=== PATIENT | male | born 1975 | race Caucasian/White ===

== ENCOUNTER 2017-03-25 20:36 | Inpatient (IN) | payer BC ==
[~2017-03-25] VITALS: Ht 185.4 cm; Wt 96.5 kg
[~2017-03-25 20:36] MED LIST: LISI10TA PO; rolaids PO
[2017-03-25 22:34] VITALS: BP 148/89; PULSE 80; TEMP 37.4; O2SAT 93; Ht 185.4 cm; Wt 96.5 kg
[2017-03-25 23:24] VITALS: BP 149/91; PULSE 73; TEMP 36.6; O2SAT 96
[2017-03-25] MEDS ORDERED: ONDANSETRON INJ 2 MG/ML 2 ML VIAL IV PRN (23:30)
[2017-03-25] MEDS ORDERED: ACETAMINOPHEN 325 MG TAB PO PRN (23:30)
[2017-03-25] MEDS ORDERED: POLYETHYLENE (MIRALAX) 17 GM PACK PO PRN (23:30)
--- NOTE | 2017-03-25 23:42 | History and Physical ---
History & Physical Date & Time of Service: Mar 25, 2017 at 23:41 Chief Complaint: Acute Ataxia Primary Care Physician: Omer Turner M.D. History of Present Illness Source: patient 41-year-old male with a past medical history of hypertension, peripheral neuropathy in bilateral feet presented to the ER as a direct admit from [facility] with complaints of unsteadiness. Per patient, he took his regular blood pressure medication this morning and noticed that he felt "off balance/unsteady" while walking. He stated that he felt a little dizzy but denied any near syncope or syncope. Denies any chest pain, shortness of breath, palpitations. Denies motor weakness , new onset numbness or tingling, blurriness of vision or slurring of speech. He stated that he has had issues with neuropathy in his bilateral feet for several years and was on Neurontin which he stopped as he did not tolerate it well. Denies any nausea, vomiting, abdominal pain, diarrhea. He has a history of hypertension pressure and is on lisinopril 10 mg daily for several years. He smokes about 8-10 cigarettes per day and drinks about 6-8 beers per day. Past Medical/Surgical History Medical Problems: (1) Allergic reaction Status: Resolved (2) Chest pain Status: Resolved (3) Cyst Status: Resolved Family History FH: HTN (hypertension) FH: diabetes mellitus FH: heart disease Social History Smoking Status: Current Every Day Smoker Marital Status: Housing status: lives with family Occupational Status: employed Multi-Drug Resistant Organisms History of MDRO: No Allergies Coded Allergies: Morphine (Verified Allergy, Unknown, Cramps in chest, 03/25/17) Home Medications Scheduled Lisinopril (Prinivil), 10 MG PO QD@08 Scheduled PRN [rolaids], 2 TABS PO for Heartburn Review of Systems Constitutional: No fever, No chills, No sweats Eyes: No worsening of vision, No diplopia ENT: No hearing loss, No nasal symptoms Respiratory: No cough, No shortness of breath, No dyspnea on exertion Cardiovascular: No chest pain, No palpitations Abdomen: No pain, No nausea, No vomiting, No diarrhea Musculoskeletal: No joint pain, No swelling Genitourinary - Male: No hematuria, No dysuria, No urinary hesitancy Neurologic: + balance problems, + problem reported (numbness bilateral feet), No memory loss Psychiatric: No depression symptoms Endocrine: No fatigue, No excessive thirst Hematologic / Lymphatic: No abnormal bleeding/bruising Integumentary: No rash Allergic / Immunologic: No environmental allergies Physical Exam Vital Signs Date Time Temp Pulse Resp B/P (MAP) Pulse Ox O2 Delivery O2 Flow Rate FiO2 03/25/17 22:34 37.4 80 18 148/89 93 Room Air General Appearance: WD/WN, no apparent distress Head: normocephalic Eyes: normal inspection ENT: hearing grossly normal Neck: supple Respiratory/Chest: chest non-tender, lungs clear, normal breath sounds, no respiratory distress, no accessory muscle use Cardiovascular: regular rate, rhythm Abdomen/GI: normal bowel sounds, non tender, soft Back: normal inspection Extremities/Musculoskelatal: no pedal edema Neurologic/Psych: seniour insight manager II-XII nml as tested, alert, normal mood/affect, oriented x 3, + sensory deficit (bilateral feet) Skin: normal color, warm/dry Impression Assessment and Plan 41-year-old male with a past medical history of hypertension, peripheral neuropathy in bilateral feet presented to the ER as a direct admit from [facility] with complaints of unsteadiness. His lab work at the outside hospital was unremarkable. He also had a CTA head which was negative. CT head was negative. 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 He does have a significant history of alcohol abuse and drinks about 6-8 beers per [address]. 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 I discussed the case with the resident and agree with the findings and plan as documented in the note. Any exceptions or clarifications are listed here: 41 y/o M Hx HTN and excessive alcohol intake. Presents with an unstable gait which he woke up with AM. Initially at [facility] and transferred as they lack a neurology service. OE AAO x 3 S1,2 R CTAB NT, ND, BS+ No CCE Neuro: No deficits are present aside from a + Rhomberg test P: MRI with and without contrast - consult neuro if symptoms do not resolve by AM Discussed excess alcohol intake with pt who drinks 6-8 beers HS - He does not have a history of DTs or symptoms of withdrawal at present - it is unlikely that this is related to his acute gait impairment Cont EDMUND for HTN Documented By: Williams Kirkland Level of Care Telemetry Advanced Directives Existing Living Will: No Existing Power of Slot Machine Department Floorperson: No Resuscitation Status FULL RESUSCITATION VTE Prophylaxis VTE Risk Assessment Done? Y/N: Yes Risk Level: Moderate Given or contraindicated: SCD's Resident Tracking Resident Involvement: Resident Care Provided Care Provided: Adult Hospital Medicine
[2017-03-26] VITALS (9 sets, daily range): BP systolic 132–150; BP diastolic 80–97; PULSE 75–83; TEMP 36.7–36.9; O2SAT 93–97
[2017-03-26 07:47] LABS: BUN/CREATININE RATIO 9.8 (10-20); CALCIUM 8.3 mg/dl (8.5-10.1)
[2017-03-26 07:50] LABS: ALB/GLOB RATIO 1.1 (0.9-2)
[2017-03-26] MEDS ORDERED: LISINOPRIL 10 MG TAB PO SCH (08:00)
[2017-03-26 08:02] LABS: BASO % 0.4 %; BASO ABS # 0.04 K/uL (0-0.2); COMPLETE YES; EOS % 4.6 %; HEMATOCRIT 43.5 % (42-52); IG% 0.3 %; LYMPH % 25.2 %; LYMPH ABS # 2.73 K/uL (1.2-3.4); MEAN CELL VOLUME 94.6 fL (80-100); MEAN CORPUSCULAR HEMOGLOBIN 31.5 pg (25-34); MEAN CORPUSCULAR HGB CONC 33.3 g/dl (32-36); MEAN PLATELET VOLUME 10.6 fL (7.4-10.4); MONO % 7.7 %; NEUT % 61.8 %; PLATELET COUNT 223 K/uL (130-400); WHITE BLOOD COUNT 10.84 K/uL (4.8-10.8)
--- NOTE | 2017-03-26 10:01 | Medical Student: [facility] ---
Med Student History & Physical Date & Time of Service: Mar 26, 2017 at 09:51 Chief Complaint: Acute Ataxia Primary Care Physician: Omer Turner M.D. History of Present Illness Source: patient Mr. Slaughter is a 41yo male who presented to the ED at [facility] with complaints of "feeling clumsy," "dizzy," and "staggering while walking." Patient awoke on Sunday (03/25) around 09:30 with the described symptoms. Mr. Slaughter attributed the symptoms to potentially elevated blood pressure; he took his prescribed lisinopril 10mg. Yet, the symptoms persisted and his took him to the ED at around 13:30. Patient reports that he did nothing out of the ordinary on Sunday (03/24). He reports drinking about 8 beers every night for the past 2 years. At [facility], patient reports that the ED doctor noted impaired tandem walking and a positive Romberg test. Patient denies nausea, vomiting, fever, chills, shortness of breath, or chest pain. The patient was seen in the outpatient setting by Dr. Kramer in 11/2015 for an EMG and nerve conduction studies of the arms, which showed mixed sensorimotor polyneuropathy with no signs of radiculopathy or myopathy. MRI of cervical spine showed a bulging disc around C4/C5 with no cord compromise or impingement. In 02/2016 the patient was seen by Dr. Pritchett for b/l paresthesias in the hands; Dr. Pritchett also noted some b/l hand weakness. Testing for causes of his peripheral neuropathy (diabetes, B12 deficiency, Lyme disease, rheumatological disorders) were unremarkable: HgbA1c 5.4; B12 514, Lyme Ab titers, SHELDON, SSA, and SSB were all negative. 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[employer]) Allergies Coded Allergies: Morphine (Verified Allergy, Unknown, Cramps in chest, 03/25/17) Medications Folate-Vitamin X20-Gflkwzpvt F (Intrinsi B12/Folate), 400 MCG PO DAILY Lisinopril (Prinivil), 10 MG PO QD@08 Thiamine Hcl (Vitamin B-1), 100 MG PO DAILY [rolaids], 2 TABS PO for Heartburn Review of Systems Constitutional: No fever, No chills, No sweats, No weight loss, No weakness Eyes: No worsening of vision, No eye pain ENT: No hearing loss, No nasal symptoms, No sore throat Respiratory: No cough, No sputum, No wheezing, No shortness of breath Cardiovascular: No chest pain, No orthopnea, No edema Abdomen: No pain, No nausea, No vomiting, No diarrhea, No constipation Musculoskeletal: No joint pain, No muscle pain, No swelling, No calf pain Genitourinary - Male: No dysuria, No urinary frequency, No urinary urgency Neurologic: + numbness/tingling (b/l feet), + balance problems, No memory loss Integumentary: No rash Allergic / Immunologic: No environmental allergies Physical Exam Vital Signs (24 Hours) Date Time Temp Pulse Resp B/P (MAP) Pulse Ox O2 Delivery O2 Flow Rate FiO2 03/26/17 08:06 36.8 80 16 147/97 (114) 95 Room Air 03/26/17 04:00 93 Room Air 03/26/17 03:54 36.9 82 20 133/80 (97) 96 Room Air 83 143/97 (112) 81 132/91 (105) 03/26/17 00:00 93 Room Air 03/25/17 23:24 36.6 73 20 149/91 (110) 96 Room Air 03/25/17 22:34 37.4 80 18 148/89 93 Room Air General Appearance: WD/WN, no apparent distress Cardiovascular: regular rate, rhythm, no murmur Patient is right-handed. Mental status: Patient is alert and oriented to person, date, and place. Speech , mood, and affect are normal. Cranial nerves: II: PERRL; no visual field deficits present; gross visual acuity intact. III, IV, : EOMI; no eye deviation at primary gaze. V: light touch intact in V1, 2, & 3 distributions. VII: facial muscles intact and symmetric with wrinkling forehead, tight eye closure, puffing cheeks out, and smiling. VIII: hearing grossly intact to finger rub. IX, X: palate elevates symmetrically. XI: head turning and shoulder shrug intact. XII: tongue is midline with normal movement; no atrophy or fasciculations. Motor: Normal tone (no rigidity or spasticity); no atrophy or fasciculations. Strength assessed as 5/5 for upper extremities b/l (shoulder abduction, elbow flexion/extension, wrist flexion/extension, abduction of fingers) and lower extremities b/l (hip flexion, knee flexion/extension, dorsiflexion/plantar flexion) Deep tendon reflexes: 1+ biceps, brachioradialis, and triceps b/l; 1+ patellar b /l; absent Achilles b/l. Sensory: vibration and temperature intact b/l in upper extremities; decreased light touch sensation in b/l distal upper extremities; decreased light touch, vibration, and temperature sensation in b/l stocking distribution of lower extremities. Coordination: mild finger to nose dysmetria (end action tremor); normal heel to keller without dysmetria. Gait: difficulty with tandem walking positive Romberg test toes are downgoing with plantar stimulation b/l Diagnostics Laboratory Results Results Past 24 Hours Test 03/26/17 06:59 03/26/17 07:25 Range/Units White Blood Count 10.84 4.8-10.8 K/uL Red Blood Count 4.60 4.7-6.1 M/uL Hemoglobin 14.5 14.0-18.0 g/dL Hematocrit 43.5 42-52 % Mean Corpuscular Volume 94.6 80-100 fL Mean Corpuscular Hemoglobin 31.5 25-34 pg Mean Corpuscular Hemoglobin Concent 33.3 32-36 g/dl Platelet Count 223 130-400 K/uL Mean Platelet Volume 10.6 7.4-10.4 fL Neutrophils (%) (Auto) 61.8 % Lymphocytes (%) (Auto) 25.2 % Monocytes (%) (Auto) 7.7 % Eosinophils (%) (Auto) 4.6 % Basophils (%) (Auto) 0.4 % Neutrophils # (Auto) 6.70 1.4-6.5 K/uL Lymphocytes # (Auto) 2.73 1.2-3.4 K/uL Monocytes # (Auto) 0.84 0.11-0.59 K/uL Eosinophils # (Auto) 0.50 0-0.5 K/uL Basophils # (Auto) 0.04 0-0.2 K/uL RDW Standard Deviation 44.5 36.4-46.3 fL RDW Coefficient of Variation 13.0 11.5-14.5 % Immature Granulocyte % (Auto) 0.3 % Immature Granulocyte # (Auto) 0.03 0.00-0.02 K/uL Sodium Level 139 136-145 mmol/L Potassium Level 4.0 3.5-5.1 mmol/L Chloride Level 107 98-107 mmol/L Carbon Dioxide Level 27 21-32 mmol/L Anion Gap 5.0 3-11 mmol/L Blood Urea Nitrogen 10 7-18 mg/dl Creatinine 1.00 0.60-1.40 mg/dl Est Creatinine Clear Calc Drug Dose 120.2 ml/min Estimated GFR () 108.6 Estimated GFR (Non- 93.7 BUN/Creatinine Ratio 9.8 10-20 Random Glucose 92 70-99 mg/dl Calcium Level 8.3 8.5-10.1 mg/dl Total Bilirubin 0.3 0.2-1 mg/dl Aspartate Amino Transf (AST/SGOT) 26 15-37 U/L Alanine Aminotransferase (ALT/SGPT) 54 12-78 U/L Alkaline Phosphatase 75 45-117 U/L Total Protein 6.6 6.4-8.2 gm/dl Albumin 3.4 3.4-5.0 gm/dl Globulin 3.2 2.5-4.0 gm/dl Albumin/Globulin Ratio 1.1 0.9-2 Vitamin B12 Level 431 211-911 pg/mL Folate 21.43 >5.38 ng/mL Diagnostic Radiology BRAIN COMBO CLINICAL HISTORY: 41 years-old Male presenting with acute ataxia. TECHNIQUE: Multisequence, multiplanar MR imaging of the brain was performed after the administration of intravenous contrast. IV contrast: None. COMPARISON: Correlation made with CT from 10/25/2014. FINDINGS: Normal midline sagittal structures. Salcedo-white matter differentiation preserved. No restricted diffusion to suggest acute ischemia. No midline shift or mass effect. Ventricles and sulci within normal limits. No hemorrhage or extra-axial fluid collection. Bone marrow signal intensity within the calvarium normal. Paranasal sinuses and mastoid air cells grossly clear. Orbits normal. Upper cervical spine normal. IMPRESSION: No acute intracranial abnormality. Electronically signed by: Bismark Camejo 03/26/2017 1:47 PM Impression Assessment and Plan Mr. Slaughter is a 41yo male with a history of hypertension and b/l peripheral neuropathy in hands and feet who presented with an unsteady gait. Unsteady gait: --DDX: peripheral neuropathy, alcohol withdrawal, cerebellar damage, B12 or B6 deficiency. --the patient's unsteady gait can most likely be attributed to his b/l peripheral neuropathy in his feet (i.e. sensory ataxia); although cerebellar damage cannot be ruled out. The patient did not exhibit signs of alcohol withdrawal today, but I am unsure if they were present upon initial presentation to the ED. B12 levels were within normal limits; B6 levels will be tested. Peripheral neuropathy: --etiology of patient's peripheral neuropathy is unknown. Testing for the following causes of peripheral neuropathy (diabetes, B12 deficiency, Lyme disease, rheumatological disorders) were unremarkable: HgbA1c 5.4; B12 514, Lyme Ab titers, SHELDON, SSA, and SSB were all negative. --will test for heavy metals with a 24hr urine --the patient's chronic heavy alcohol use may be a contributing factor or the cause HTN: --poorly controlled; consider increasing lisinopril 10mg or adding an additional anti-hypertensive medication. Advanced Directives Existing Living Will: No Existing Power of Safe Deposit Box Rental Clerk: No
--- NOTE | 2017-03-26 10:24 | Neurology Consultation ---
Neurology Consultation Date of Consultation: Mar 26, 2017. Attending Physician: Nils Ambriz D.O. Primary Care Physician: Omer Turner M.D. Reason for Consultation: Patient is a 41-year-old, who was asked to see the request of Dr. Thompson, for neurologic consultation regarding abnormal gait and neuropathy History of Present Illness Source: patient, family, caregiver, clinic records, hospital records Patient's is present at bedside. The patient has had problems with numbness in his feet with intermittent tingling for 2-3 years now. It was a rather insidious onset and gradual progression. In November 2015, EMG and nerve conduction studies of the arms showed a sensory greater than motor polyneuropathy of the significant nature. There was no superimposed carpal tunnel syndrome or radiculopathy. He did have some neck pain at the time. An MRI of the cervical spine in 2014 showed C4-5 and C3-[address] Patient saw [address] Pritchett in February 2016. On exam she felt some slight hand weakness bilaterally but his gait was unremarkable except for a lack of tandem walking. At that time, chem profile was unremarkable except for a mildly elevated ALT and AST. CBC was normal and hemoglobin A1c was 5.4. Electrophoresis was unremarkable, B-12 was 514, Lyme antibody titers were negative, and SHELDON, SSA, and SSB were unremarkable. Serum ceruloplasmin and copper were normal. He was lost to follow-up as an outpatient after that. Patient tells me that he's had continued bilateral numbness in his feet and intermittent tingling of his feet which comes and goes. He does not have significant pain and he has no weakness in his legs. There is no urinary incontinence. He does "stumble" at times and have some decreased coordination. This isn't been going on for years so. He does not actually fall. He denies any confusion, speech problems or cognitive issues. He has no vision problems. His a chronic history of hypertension but no history of diabetes, heart disease , or stroke. More recently, he has had cramping in his hands lasting 5-10 minutes particularly at the end of a long, hard day at work. She was in his usual state of health this past weekend when on March 25 he awoke at 0930 hours within unusual fatigue and dizziness. It was more of a woozy/ movement sensation although the was not true vertigo. It was worse to walk but he had no other acute symptoms. There is no focal weakness or numbness. No abnormal involuntary movements. Around 1300 hrs. he went to [facility] emergency room. In the being transferred to our institution late in the day. At 2-34 hours, blood pressure was 37.4, pulse 80, respiratory rate 18, blood pressure 140/89, and O2 saturation 93%. His gait was questionably unbalanced but his exam was otherwise nonfocal. CBC was unremarkable except for some mild increase in white count. Chemistry profile including liver profile was normal. B-12 was 431, folate 21, and RPR is pending. He is much improved today, and only has a residual of the feelings he had yesterday. He has no new issues overnight. Blood pressure remains somewhat elevated. 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 Gait disturbance Chronic alcohol use. Hypertension History of right shoulder area skin birthmark removal age 10. Family History Mother is alive at age 62 with a history of heart disease and has a history of blood clots. Father in his 50s from COPD. There is no family history of polyneuropathy. Social History Patient smokes about a half-pack of cigarettes per day and has been doing this since age 13 or 14. Patient currently drinks approximately 8 beers per evening every evening. This is been going on for about 2 years. Prior to that he would drink up to a sixpack in the evening ever since age 21. 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 Smokeless Tobacco Use: No Alcohol Use: heavy Drug Use: none Marital Status: Housing Status: lives with significant other Occupation Status: employed Allergies Coded Allergies: Morphine (Verified Allergy, Unknown, Cramps in chest, 03/25/17) Current Inpatient Medications Current Inpatient Medications Medications (Trade) Dose Ordered Sig/Leah Route Start Time Stop Time Status Last Admin Dose Admin Acetaminophen (Tylenol Tab) 650 mg Q4H PRN PO 03/25/17 23:30 04/24/17 23:29 Ondansetron HCl (Zofran Inj) 4 mg Q6H PRN IV 03/25/17 23:30 04/24/17 23:29 Polyethylene (Miralax Powder Packet) 17 gm DAILY PRN PO 03/25/17 23:30 04/24/17 23:29 Lisinopril (Zestril Tab) 10 mg QD@08 PO 03/26/17 08:00 04/25/17 07:59 03/26/17 08:08 10 MG Review of Systems Constitutional: + fatigue, No fever, No weakness Eyes: No worsening of vision, No diplopia ENT: No hearing loss, No tinnitus Respiratory: No cough, No shortness of breath Cardiovascular: No chest pain, No palpitations Abdomen: No pain, No nausea Musculoskeletal: No joint pain, No muscle pain Genitourinary - Male: No dysuria, No urinary incontinence Neurologic: + numbness/tingling, + balance problems, No memory loss, No weakness Psychiatric: No depression symptoms, No anxiety Endocrine: + fatigue Hematologic / Lymphatic: No abnormal bleeding/bruising Integumentary: No rash Allergic / Immunologic: No hives Physical Exam Vital Signs (Past 24 Hrs): Date Time Temp Pulse Resp B/P (MAP) Pulse Ox O2 Delivery O2 Flow Rate FiO2 03/26/17 08:06 36.8 80 16 147/97 (114) 95 Room Air 03/26/17 04:00 93 Room Air 03/26/17 03:54 36.9 82 20 133/80 (97) 96 Room Air 83 143/97 (112) 81 132/91 (105) 03/26/17 00:00 93 Room Air 03/25/17 23:24 36.6 73 20 149/91 (110) 96 Room Air 03/25/17 22:34 37.4 80 18 148/89 93 Room Air Patient is right-handed. The patient is awake and alert. Speech is normal without aphasia or dysarthria. Mentation and thought processes are intact with orientation and normal fund of knowledge. Mood and affect are normal and appropriate. Appearance and grooming are normal. The discs are sharp with positive venous pulsations. There are no exudates, hemorrhages, or blood vessel changes seen. Pupils are 4mm bilaterally and reactive to light. Extraocular eye muscles are intact without nystagmus. Visual acuity and visual patel seem normal grossly to confrontation. There are no deficits to sensation of the face bilaterally. Corneal reflexes are positive bilaterally. Facial strength and symmetry is normal bilaterally. Hearing seems intact grossly to voice and finger rub. Palate moves well without asymmetry. There is normal sternocleidomastoid and trapezius strength bilaterally. Tongue is midline with good strength bilaterally. Neck is with full range of motion without discomfort. There are no cervical bruits. There are no cranial or ocular bruits. Heart is without murmur. Cervical, thoracic, and lumbar spine are nontender to palpation. Gait is slightly wide-based with positive arm swing and fairly stable bilaterally. Turns are reasonable. Stance with feet together and eyes open is good. With eyes closed she sways considerably. Tandem walking is difficult for him. With outstretched arms there is no drift. There are no resting tremors. The patient has very mild endpoint action tremor bilaterally. She does not have a true postural tremor. There is no ataxia with [id number] testing. There is good facility in the hands. There are no abnormal involuntary movements noted. There is no ataxia with [id number] testing either. 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 Motor strength is 5/5 diffusely in the legs bilaterally including hip flexors, quadriceps, hamstring, gastrocnemius, tibialis anterior, tibialis posterior, and peroneii muscles bilaterally. Toe extensors are normal and there is good bulk in the extensor digitorum brevis muscle bilaterally. The limbs have good tone without rigidity or spasticity, and there is no atrophy noted. Muscle bulk is normal, there is no tenderness, no myotonia noted to percussion, and no fasciculations seen. Sensory examination reveals decreased sensation to pin in a stocking distribution to the mid lower legs bilaterally. Light touch is decreased in all 4 limbs distally. He has marked vibratory sense loss and mild to moderate position sense loss as well in the feet bilaterally. Reflexes are 1/4 in the biceps, triceps, brachioradialis, and quadriceps tendons bilaterally. Achilles tendon reflexes are absent bilaterally. Toes are downgoing with plantar stimulation bilaterally. Peripheral pulses are present and of normal quality distally in all four limbs. There is no peripheral edema noted. Laboratory Results Past 24 Hours: 03/26/17 06:59 Red Blood Count 4.60, Mean Corpuscular Volume 94.6, Mean Corpuscular Hemoglobin 31.5, Mean Corpuscular Hemoglobin Concent 33.3, Mean Platelet Volume 10.6, Neutrophils (%) (Auto) 61.8, Lymphocytes (%) (Auto) 25.2, Monocytes (%) (Auto) 7.7, Eosinophils (%) (Auto) 4.6, Basophils (%) (Auto) 0.4, Neutrophils # (Auto) 6.70, Lymphocytes # (Auto) 2.73, Monocytes # (Auto) 0.84, Eosinophils # (Auto) 0.50, Basophils # (Auto) 0.04 03/26/17 06:59 Test 03/26/17 06:59 03/26/17 07:25 White Blood Count 10.84 K/uL (4.8-10.8) Red Blood Count 4.60 M/uL (4.7-6.1) Hemoglobin 14.5 g/dL (14.0-18.0) Hematocrit 43.5 % (42-52) Mean Corpuscular Volume 94.6 fL (80-100) Mean Corpuscular Hemoglobin 31.5 pg (25-34) Mean Corpuscular Hemoglobin Concent 33.3 g/dl (32-36) Platelet Count 223 K/uL (130-400) Mean Platelet Volume 10.6 fL (7.4-10.4) Neutrophils (%) (Auto) 61.8 % Lymphocytes (%) (Auto) 25.2 % Monocytes (%) (Auto) 7.7 % Eosinophils (%) (Auto) 4.6 % Basophils (%) (Auto) 0.4 % Neutrophils # (Auto) 6.70 K/uL (1.4-6.5) Lymphocytes # (Auto) 2.73 K/uL (1.2-3.4) Monocytes # (Auto) 0.84 K/uL (0.11-0.59) Eosinophils # (Auto) 0.50 K/uL (0-0.5) Basophils # (Auto) 0.04 K/uL (0-0.2) RDW Standard Deviation 44.5 fL (36.4-46.3) RDW Coefficient of Variation 13.0 % (11.5-14.5) Immature Granulocyte % (Auto) 0.3 % Immature Granulocyte # (Auto) 0.03 K/uL (0.00-0.02) Anion Gap 5.0 mmol/L (3-11) Est Creatinine Clear Calc Drug Dose 120.2 ml/min Estimated GFR () 108.6 Estimated GFR (Non- 93.7 BUN/Creatinine Ratio 9.8 (10-20) Calcium Level 8.3 mg/dl (8.5-10.1) Total Bilirubin 0.3 mg/dl (0.2-1) Aspartate Amino Transf (AST/SGOT) 26 U/L (15-37) Alanine Aminotransferase (ALT/SGPT) 54 U/L (12-78) Alkaline Phosphatase 75 U/L (45-117) Total Protein 6.6 gm/dl (6.4-8.2) Albumin 3.4 gm/dl (3.4-5.0) Globulin 3.2 gm/dl (2.5-4.0) Albumin/Globulin Ratio 1.1 (0.9-2) Vitamin B12 Level 431 pg/mL (211-911) Folate 21.43 ng/mL (>5.38) Impression 1. Generalized polyneuropathy of uncertain etiology. This is been chronic and involve sensory greater than motor fibers of mixed pathology and fiber involvement. There is evidence of both large and small caliber sensory fiber involvement. This type of neuropathy explains his symptomatology and he likely has a sensory ataxia from the neuropathy He has had fairly extensive evaluation in the past without specific etiology identified. I suspect chronic peripheral neuropathy from direct alcohol effect on the nerves. This can be subacute or chronic. We will check some other labs as listed below however. Toxic neuropathy cannot entirely be excluded either. 2. Gait disturbance. I believe this is predominantly a sensory ataxia from polyneuropathy. I cannot exclude a component from a cerebellar issue (from chronic alcohol usage ) but he doesn't have much in the way of ataxia on exam. 3. Very mild action tremor There is no family history of tremor and again, there is no specific etiology. This may be a chronic alcohol effect as well particularly when he is not drinking. 4. Chronic alcohol usage There are no signs of alcohol withdrawal on exam today. 5. Hypertension. He is not currently adequately controlled. 6. History of disc protrusion and cervical spine pain: 2015. This was accompanied by some bilateral hand weakness but currently he has no head weakness and no neck pain. There are no signs of myelopathy on exam either (however, a significant polyneuropathy will mask upper motor neuron signs) . Plan 1. MRI of the brain with and without contrast. Rule out intracranial process including stroke and degenerative conditions 2. Laboratory studies to include B1, B-6, Lyme antibody titer, sedimentation rate, and serum lead level. 3. 24 urine for heavy metals. 4. I see no need for additional neurologic testing or treatment at this time. I may consider MRI of the cervical spine in future. 5. Control hypertension, type or mean arterial pressure of about 100 6. We had a discussion at length regarding stopping alcohol usage. Just simply cutting back on alcohol will not help his nerves if the neuropathy is due to a direct alcohol effect. It will have to be stopped and will help to wait at least 6 months to see if there is an improvement (assuming no vitamin deficiencies as well) . 7. Discontinue cigarette smoking. Patient's father at early age of COPD from smoking. I spoke with Dr. Ambriz regarding this case including differential diagnosis and treatment options.
--- NOTE | 2017-03-26 13:49 | DIAGNOSTIC IMAGING REPORT ---
BRAIN COMBO CLINICAL HISTORY: 41 years-old Male presenting with acute ataxia. TECHNIQUE: Multisequence, multiplanar MR imaging of the brain was performed after the administration of intravenous contrast. IV contrast: None. COMPARISON: Correlation made with CT from 10/25/2014. FINDINGS: Normal midline sagittal structures. Salcedo-white matter differentiation preserved. No restricted diffusion to suggest acute ischemia. No midline shift or mass effect. Ventricles and sulci within normal limits. No hemorrhage or extra-axial fluid collection. Bone marrow signal intensity within the calvarium normal. Paranasal sinuses and mastoid air cells grossly clear. Orbits normal. Upper cervical spine normal. IMPRESSION: No acute intracranial abnormality. Electronically signed by: Bismark Camejo 03/26/2017 1:47 PM Dictated Date/Time: 03/26/2017 1:42 PM
--- NOTE | 2017-03-26 15:37 | Discharge Instructions ---
Discharge Instructions Date of Service Mar 26, 2017. Admission Reason for Admission: Acute Ataxia Discharge Discharge Diagnosis / Problem: Ataxia Discharge Goals Goal(s): Learn about illness, Diagnostic testing Activity Recommendations Activity Limitations: per Instructions/Follow-up section . Instructions / Follow-Up Instructions / Follow-Up We did an MRI of your brain which did not show any acute or chronic brain damage. Please cut back on your alcohol usage as this is the likely reason for the damage to your nerves. If this is the cause of your neuropathy then it will take at least 6 months for your nerve function to improve. Please try your best to quit smoking also as this will lead to detrimental [facility] health outcomes. Please follow up with your PCP as well as Dr. Kramer in his office. He may want to do additional testing at that time. Dr. Schmitt office can be reached at [phone]. Please phone his office to make an appointment. We will be sending you home with a prescription for folate and thiamine. Please take these as prescribed. If you have any limb weakness, facial droop, speech difficulties or confusion then please come back to the emergency department. Current Hospital Diet Patient's current hospital diet: Regular Diet Discharge Diet Recommended Diet: Regular Diet Pending Studies Studies pending at discharge: no Medical Emergencies . Who to Call and When: Medical Emergencies: If at any time you feel your situation is an emergency, please call 911 immediately. . Non-Emergent Contact Non-Emergency issues call your: Primary Care Provider, Neurologist . . "Provider Documentation" section prepared by Hadley Pearson. . VTE Core Measure Inpt VTE Proph given/why not?: SCD's
[2017-03-26] MEDS ORDERED: THIA50TA3 PO (15:40)
[2017-03-26] MEDS ORDERED: FOLATAB PO (15:40)
--- NOTE | 2017-03-26 16:44 | Discharge Summary ---
Discharge Summary Date of Service Mar 26, 2017. (Hadley Pearson MD) Discharge Summary Admission Date: Mar 25, 2017 at 22:13 Discharge Date: Mar 26, 2017 Discharge Disposition: Home Principal Diagnosis: Ataxia Consultations: Neurology (Hadley Pearson MD) Medication Reconciliation New Medications: Folate-Vitamin [id number] F (Intrinsi B12/Folate) 1 Tab Tab 400 MCG PO DAILY for 60 Days, #60 TABS Thiamine Hcl (Vitamin B-1) 50 Mg Tab 50 MG PO DAILY for 60 Days, #60 TAB 5 Refills Continued Medications: Lisinopril (Prinivil) 10 Mg Tab 10 MG PO QD@08, #15 TAB 4 Refills [rolaids] () 2 TABS PO PRN for Heartburn Discharge Exam Patient feeling much better today. Almost back to baseline. He says he has been walking around the [place] and feels that his gait has improved tremendously Review of Systems: Constitutional: No fever, No chills Eyes: No worsening of vision, No diplopia ENT: No hearing loss, No tinnitus Respiratory: No cough, No shortness of breath Abdomen: No pain, No nausea, No vomiting Musculoskeletal: No joint pain, No muscle pain Neurologic: + balance problems, No paralysis, No weakness, No numbness/ tingling, No vertigo Physical Exam: General Appearance: WD/WN, no apparent distress ENT: hearing grossly normal, pharynx normal Neck: supple, no JVD, no carotid bruits Respiratory/Chest: lungs clear, no respiratory distress, no accessory muscle use Cardiovascular: regular rate, rhythm, no JVD, no murmur, normal peripheral pulses Abdomen / GI: normal bowel sounds, non tender, soft Extremities: normal capillary refill, no pedal edema, + pertinent finding ( chronic pressure wounds at base of big toe bilaterally) 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 with complaints of unsteadiness. He had a CT scan done at [place] which returned as unremarkable. Per patient, he took his regular blood pressure medication and noticed that he felt "off balance/unsteady" while walking. He stated that he felt a little dizzy but denied any near syncope or syncope. He stated that he has had issues with neuropathy in his bilateral feet for several years and was on Neurontin which he stopped as he did not tolerate it well. He has a history of hypertension pressure and is on lisinopril 10 mg daily for several years. He smokes about 8-10 cigarettes per day and drinks about 6-8 beers per day. He has been seen by neurology as an outpatient and has had an extensive workup which has all been unremarkable. In the hospital neurology was consulted and an MRI was ordered which came back as normal. It was suggested that the patient would benefit from B1, B6 testing, repeat HbA1c, Lyme ab, serum lead. It is highly likely that the majority of this patients unsteadiness is due to his drinking and we discussed alcohol cessation thoroughly to prevent further nerve damage. He was also encouraged to stop smoking. It was decided by the medical team on 03/26/2017 that the patient could be discharged and the rest of his neuro workup could be done as an outpatient. Total Time Spent: Less than 30 minutes This includes examination of the patient, discharge planning, medication reconciliation, and communication with other providers. (Hadley Pearson MD) Resident Physician Supervision Note: I interviewed and examined the patient. Discussed with Dr. Pearson and agree with findings and plan as documented in the note. Any exceptions or clarifications are listed here: None Documented By: Nils Ambriz feeling back to baseline. wants to go home. drinks 6-8 16oz beers a day. doesn't believe he has addictions, just a habit. ntoes she's been telling him he needs to quit drinking so heavy for a while. no withdrawal s/s. all other ROS otherwise negative except for as above vitals noted nad breathign unlabored no pallor or icterus. neuro exam as above neuropathy - appearing to be a sensory and proprioceptive peripheral neuropathy - with his heavy EtOH abuse hx and with his lack of other possible causes - appears almost certain to be an EtOH mediated neuropathy -> recommended cessation, discussed risks of permanence of current condition, discussed with EtOH neuropathy i harbor fears that he could also go on to develop wernicke- korsakoff. shows no s/s that at this time but discussed risk. start thiamine/ folate. safe for discharge home. EtOH cessation, outpt PCP and neuro f/u Total Time Spent: Less than 30 minutes (Nils Ambriz D.O.) Discharge Instructions Please refer to the electronic Patient Visit Report (Discharge Instructions) for additional information. (Hadley Pearson MD) Additional Copies To Maryellen Pritchett D.O.; Omer Turner M.D.
[2017-03-26] MEDS ORDERED: THIA100T11 PO (17:12)
== END 2017-03-26 16:24 | disposition home or self-care (01) | DRG 93 ==
LOC: C.2T 22:13
PROVIDERS: ADMIT Internal Medicine; ATTEND Family Medicine
DX: R27.0 Ataxia, unspecified (principal); G62.1 Alcoholic polyneuropathy; E04.1 Nontoxic single thyroid nodule; R25.1 Tremor, unspecified; M50.20 Other cervical disc displacement, unspecified cervical region; I10 Essential (primary) hypertension; F10.10 Alcohol abuse, uncomplicated; F17.210 Nicotine dependence, cigarettes, uncomplicated; Z79.899 Other long term (current) drug therapy